=== PATIENT | female | born 1960 | race Caucasian/White ===

== ENCOUNTER 2018-07-01 10:22 | Inpatient (IN) | payer BC ==
[2018-07-01 11:01] LABS: Absolute Lymphocytes (CBC) 1.6 K/uL (0.7-4.9); Absolute Monocytes 0.6 K/uL (0.1-1.3); Absolute Neutrophil 7.7 K/uL (1.8-8.0); Basophils % 0.8 % (0-1.3); Eosinophils % 1.3 % (0-4.4); Hematocrit 39.2 % (36.0-45.0); Lymphocytes % 16.1 % (15.3-44.8); MPV 8.9 fL (7.6-11.3); Monocytes % 5.5 % (3.3-12.3); RBC Red Blood Cell Count 4.56 M/uL (3.86-4.86)
[2018-07-01 11:01] LABS: Urine Blood TRACE (NEG); Urine Glucose NEGATIVE (NEG); Urine Protein TRACE (NEG); Urine Specific Gravity 1.025 (1.005-1.030)
[2018-07-01] MEDS ORDERED: ASPIRIN 81 MG CHEWABLE TABLET ONE (11:09)
[2018-07-01] MEDS ORDERED: KETOROLAC 30 MG/ML INJ ONE (11:10)
[2018-07-01] MEDS ORDERED: NA CHLORIDE 0.9% 1,000 ML ONE (11:10)
[2018-07-01 11:28] LABS: ALT/SGPT 25 U/L (12-78); AST/SGOT 15 U/L (15-37); Albumin 3.7 g/dL (3.4-5.0); Alkaline Phosphatase 97 U/L (45-117); BUN Blood Urea Nitrogen 12 mg/dL (7-18); Bicarbonate 27 mmol/L (21-32); Bilirubin Direct 0.1 mg/dL (0-0.2); Bilirubin Total 0.5 mg/dL (0.2-1.0); Glucose Level 160 mg/dL (74-106); Magnesium 2.2 mg/dL (1.8-2.4); NT PRO-BNP 161 pg/mL (<125); Protein, Total 7.7 g/dL (6.4-8.2); Sodium Level 140 mmol/L (136-145); Troponin (Emerg Dept Use Only) < 0.02 ng/mL (0.0-0.045)
--- NOTE | 2018-07-01 11:52 | RAD REPORT ---
EXAM DESCRIPTION: RAD - Chest Single View - 07/01/2018 11:46 am CLINICAL HISTORY: CHEST PAIN Chest pain. COMPARISON: No comparisons FINDINGS: Portable technique limits examination quality. The lungs are grossly clear. The heart is normal in size. No displaced fractures. IMPRESSION: No acute intrathoracic process suspected.
[2018-07-01 12:20] LABS: Protime INR 1.08
--- NOTE | 2018-07-01 14:51 | ER ---
Nurse's Notes [facility] Name: Candy Hernandez Age: 57 yrs Sex: Female : 1960 Arrival Date: 07/01/2018 Time: 10:23 Bed 6 Private MD: Osvaldo Reese Diagnosis: Chest pain, unspecified;Abnormal electrocardiogram [ECG] [EKG] Presentation: 07/01 10:29 Presenting complaint: Patient states: yesterday i started having chest pain that i hj think its anxiety related but today when i woke up i had this sharp chest pain that comes and goes but the pain is constant, non radiating; denies SOB;. Transition of care: patient was not received from another setting of care. Onset of symptoms was July 01, 2018. Risk Assessment: Do you want to hurt yourself or someone else? Patient reports no desire to harm self or others. Initial Sepsis Screen: Does the patient meet any 2 criteria? No. Patient's initial sepsis screen is negative. Does the patient have a suspected source of infection? No. Patient's initial sepsis screen is negative. Care prior to arrival: None. 10:29 Method Of Arrival: Ambulatory 10:29 Acuity: SHIN 3 Triage Assessment: 10:32 General: Appears in no apparent distress. uncomfortable, Behavior is calm, cooperative, hj appropriate for age. Pain: Complains of pain in chest Pain does not radiate. Pain currently is 5 out of 10 on a pain scale. Cardiovascular: Reports chest pain, Capillary refill < 3 seconds Patient's skin is warm and dry. Historical: - Allergies: 10:31 No Known Allergies; hj - Home Meds: 10:31 None [Active]; hj - PMHx: 10:31 None; - PSHx: 10:31 ; hj - Immunization history:: Adult Immunizations not up to date. - Social history:: Smoking status: Patient/guardian denies using tobacco, Patient/guardian denies using alcohol. - Ebola Screening: : Patient negative for fever greater than or equal to 101.5 degrees Fahrenheit, and additional compatible Ebola Virus Disease symptoms Patient denies exposure to infectious person Patient denies travel to an Ebola-affected area in the 21 days before illness onset. Screenin:32 Abuse screen: Denies threats or abuse. Denies injuries from another. Nutritional hj screening: No deficits noted. Tuberculosis screening: No symptoms or risk factors identified. Fall Risk None identified. Assessment: 10:33 Pain: Pain began 1 day ago. hj 10:33 General: Appears in no apparent distress. uncomfortable, obese, Behavior is calm, hj cooperative, appropriate for age. Pain: Complains of pain in chest Pain does not radiate. Pain currently is 5 out of 10 on a pain scale. Quality of pain is described as sharp, Pain began 1 day ago. Neuro: Level of Consciousness is awake, alert, obeys commands, Oriented to person, place, time, situation, Appropriate for age. Cardiovascular: Reports chest pain, Capillary refill < 3 seconds Patient's skin is warm and dry. Respiratory: Airway is patent Respiratory effort is even, unlabored, Respiratory pattern is regular, symmetrical. GI: No signs and/or symptoms were reported involving the gastrointestinal system. : No signs and/or symptoms were reported regarding the genitourinary system. EENT: No signs and/or symptoms were reported regarding the EENT system. Derm: No signs and/or symptoms reported regarding the dermatologic system. Musculoskeletal: No signs and/or symptoms reported regarding the musculoskeletal system. 12:00 Reassessment: Patient and/or family updated on plan of care and expected duration. Pain hj level reassessed. Patient is alert, oriented x 3, equal unlabored respirations, skin warm/dry/pink. Patient states feeling better. Patient states symptoms have improved. 13:26 Reassessment: Patient and/or family updated on plan of care and expected duration. Pain hj level reassessed. Patient is alert, oriented x 3, equal unlabored respirations, skin warm/dry/pink. for repeat trop at 1400;. Vital Signs: 10:33 BP 163 / 68; Pulse 89; Resp 18; Temp 98.2(O); Pulse Ox 100% on R/A; Weight 124.74 kg; hj Height 5 ft. 3 in. (160.02 cm); Pain 5/10; 12:00 BP 148 / 70; Pulse 89; Resp 18; Pulse Ox 100% on R/A; hj 13:25 BP 127 / 66; Pulse 61; Resp 18; Pulse Ox 100% on R/A; hj 14:00 BP 117 / 48; Pulse 61; Resp 18; Pulse Ox 100% on R/A; hj 15:47 BP 122 / 53; Pulse 60; Resp 18; Pulse Ox 100% on R/A; hj 10:33 Body Mass Index 48.71 (124.74 kg, 160.02 cm) hj ED Course: 10:23 Patient arrived in ED. mr 10:23 Osvaldo Reese MD is Private Physician. mr 10:25 Christian Bishop, RN is Primary Nurse. hj 10:25 Alok Sunshine MD is Attending Physician. rn 10:25 Agustin Stafford PA is PHCP. cp 10:31 Triage completed. hj 10:32 Arm band placed on left wrist. hj 10:33 Patient has correct armband on for positive identification. Placed in gown. Bed in low hj position. Call light in reach. Side rails up X2. Adult w/ patient. monitoring coordinator on. Pulse ox on. NIBP on. 10:33 Patient maintains SpO2 saturation greater than 95% on room air. hj 10:36 EKG done, by ED staff, reviewed by Agustin RODRIGUEZ. jb1 10:41 Urine collected: clean catch specimen, cloudy, es colored. jb1 10:55 Initial lab(s) drawn, by tx, sent to lab. Inserted saline lock: 24 gauge in left hand, hj using aseptic technique. Blood collected. 11:03 Basic Metabolic Panel Sent. hj 11:03 CBC with Diff Sent. hj 11:03 LFT's Sent. hj 11:03 Magnesium Sent. hj 11:04 NT PRO-BNP Sent. hj 11:04 PT-INR Sent. hj 11:04 Troponin (emerg Dept Use Only) Sent. hj 11:46 XRAY Chest (1 view) In Process Unspecified. EDMS 13:50 Troponin I Sent. hj 14:04 Troponin I Sent. hj 14:43 Osvaldo Reese MD is Hospitalizing Provider. cp 15:46 Patient admitted, IV remains in place. intact, bleeding controlled, No redness/swelling hj at site. Pressure dressing applied. 15:46 No provider procedures requiring assistance completed. hj Administered Medications: 10:55 Drug: TORadol 30 mg Route: IVP; Site: left hand; hj 12:05 Follow up: Response: No adverse reaction; Pain is decreased hj 10:55 Drug: Aspirin Chewable Tablet 162 mg Route: PO; hj 12:05 Follow up: Response: No adverse reaction hj 10:55 Drug: NS 0.9% 500 ml Route: IV; Rate: bolus; Site: left hand; hj 12:06 Follow up: IV Status: Completed infusion hj 10:55 Drug: NS 0.9% 500 ml Route: IV; Rate: 125 ml/hr; Site: left hand; hj 12:06 Follow up: IV Status: Infusion continued Outcome: 14:50 Decision to Hospitalize by Provider. cp 15:46 Admitted to Med/surg accompanied by tech, family with patient, via wheelchair, room hj 213, with chart, Report called to Genevieve Cintron RN 15:46 Condition: stable 15:46 Instructed on the need for admit, Demonstrated understanding of instructions. 16:02 Patient left the ED. Signatures: Dispatcher [employer] EDYobany Cabrera Mary mr Alok Sunshine MD MD rn Joaquin, Henry, RN RN hj Page, Corey, JENNIFER PA cp Corrections: (The following items were deleted from the chart) 10:43 10:33 124.74 kg; Height 5 ft. 3 in.; BMI: 48.7; Pain 5/10; [facility]
--- NOTE | 2018-07-01 14:51 | EDPHYS ---
Physician Documentation [facility] Name: Candy Hernandez Age: 57 yrs Sex: Female : 1960 Arrival Date: 07/01/2018 Time: 10:23 Bed 6 Private MD: Osvaldo Reese ED Physician Alok Sunshine HPI: 07/01 10:39 This 57 yrs old Female presents to ER via Ambulatory with complaints of Chest cp Pain. 10:40 The patient or guardian reports chest pain that is located primarily in the anterior cp chest wall, substernal. 10:40 Onset: last night. cp 10:40 The pain does not radiate. cp 10:40 Associated signs and symptoms: Pertinent negatives: abdominal pain, cough, diaphoresis, cp dizziness, headache, lower extremity pain, lower extremity swelling, palpitations, recent travel, shortness of breath, syncope, vomiting. The chest pain is described as sharp. Duration: The patient or guardian reports multiple episodes, that wax and wane. Modifying factors: The symptoms are alleviated by nothing. the symptoms are aggravated by nothing. Historical: - Allergies: 10:31 No Known Allergies; hj - Home Meds: 10:31 None [Active]; hj - PMHx: 10:31 None; hj - PSHx: 10:31 ; hj - Immunization history:: Adult Immunizations not up to date. - Social history:: Smoking status: Patient/guardian denies using tobacco, Patient/guardian denies using alcohol. - Ebola Screening: : Patient negative for fever greater than or equal to 101.5 degrees Fahrenheit, and additional compatible Ebola Virus Disease symptoms Patient denies exposure to infectious person Patient denies travel to an Ebola-affected area in the 21 days before illness onset. ROS: 10:45 Constitutional: Negative for body aches, chills, fever, poor PO intake. cp 10:45 Eyes: Negative for injury, pain, redness, and discharge. cp 10:45 ENT: Negative for drainage from ear(s), ear pain, sore throat, difficulty swallowing, cp difficulty handling secretions. 10:45 Cardiovascular: Positive for chest pain, Negative for edema, palpitations. 10:45 Respiratory: Negative for cough, shortness of breath, wheezing. 10:45 Abdomen/GI: Negative for abdominal pain, nausea, vomiting, and diarrhea, constipation. 10:45 Back: Negative for pain at rest, pain with movement, radiated pain. 10:45 Skin: Negative for cellulitis, rash. 10:45 Neuro: Negative for altered mental status, headache, weakness. 10:45 All other systems are negative. Exam: 10:40 ECG was reviewed by the Attending Physician. cp 10:50 Constitutional: The patient appears in no acute distress, alert, awake, cp non-diaphoretic, non-toxic, well developed, well nourished, obese. 10:50 Head/Face: Normocephalic, atraumatic. Eyes: Pupils equal round and reactive to light, cp extra-ocular motions intact. Lids and lashes normal. Conjunctiva and sclera are non-icteric and not injected. Cornea within normal limits. Periorbital areas with no swelling, redness, or edema. ENT: Nares patent. No nasal discharge, no septal abnormalities noted. Tympanic membranes are normal and external auditory canals are clear. Oropharynx with no redness, swelling, or masses, exudates, or evidence of obstruction, uvula midline. Mucous membranes moist. Neck: Trachea midline, no thyromegaly or masses palpated, and no cervical lymphadenopathy. Supple, full range of motion without nuchal rigidity, or vertebral point tenderness. No Meningismus. Chest/axilla: Normal chest wall appearance and motion. Nontender with no deformity. No lesions are appreciated. Cardiovascular: Regular rate and rhythm with a normal S1 and S2. No gallops, murmurs, or rubs. Normal PMI, no JVD. No pulse deficits. Respiratory: Lungs have equal breath sounds bilaterally, clear to auscultation and percussion. No rales, rhonchi or wheezes noted. No increased work of breathing, no retractions or nasal flaring. 10:50 Abdomen/GI: Inspection: obese Bowel sounds: active, all quadrants, Palpation: abdomen is soft and non-tender, in all quadrants, rebound tenderness, is not appreciated, involuntary guarding, is not appreciated. 10:50 Back: pain, is absent, ROM is normal. 10:50 Skin: cellulitis, is not appreciated, no rash present. 10:50 Neuro: Orientation: to person, place \T\ time. Mentation: is normal, Cerebellar function: is grossly normal, Motor: moves all fours, strength is normal, Sensation: is normal. 14:25 ECG was reviewed by the Attending Physician. Vital Signs: 10:33 BP 163 / 68; Pulse 89; Resp 18; Temp 98.2(O); Pulse Ox 100% on R/A; Weight 124.74 kg; hj Height 5 ft. 3 in. (160.02 cm); Pain 5/10; 12:00 BP 148 / 70; Pulse 89; Resp 18; Pulse Ox 100% on R/A; hj 13:25 BP 127 / 66; Pulse 61; Resp 18; Pulse Ox 100% on R/A; hj 14:00 BP 117 / 48; Pulse 61; Resp 18; Pulse Ox 100% on R/A; hj 15:47 BP 122 / 53; Pulse 60; Resp 18; Pulse Ox 100% on R/A; hj 10:33 Body Mass Index 48.71 (124.74 kg, 160.02 cm) hj MDM: 10:25 Patient medically screened. rn 11:00 Differential diagnosis: abnormal EKG, acute myocardial infarction, pericarditis, cp pneumonia, pneumothorax, pulmonary embolus, stable angina, thoracic aortic disection, unstable angina. 14:31 The patient was given aspirin in the Emergency Department. 14:35 Physician consultation: Saira Singh MD was called at 14:30, was contacted at 14:30, regarding admission, to the telemetry unit. patient's condition, discussed changes noted on repeat EKG of inverted t-waves in leads II, III, aVF, V3, V4, V5, V6. 14:35 Data reviewed: vital signs, nurses notes, lab test result(s), EKG, radiologic studies, cp plain films. 14:35 Test interpretation: by ED physician or midlevel provider: ECG, plain radiologic cp studies. Counseling: I had a detailed discussion with the patient and/or guardian regarding: the historical points, exam findings, and any diagnostic results supporting the discharge/admit diagnosis, lab results, radiology results, the need for further work-up and treatment in the hospital. Response to treatment: the patient's symptoms have markedly improved after treatment. 07/01 10:30 Order name: Basic Metabolic Panel; Complete Time: 11:55 cp 07/01 11:55 Interpretation: Normal except: GLUC 160; GFR 74. cp 07/01 10:30 Order name: CBC with Diff; Complete Time: 11:11 cp 07/01 11:11 Interpretation: Normal except: ZIA% 76.3. cp 07/01 10:30 Order name: LFT's; Complete Time: 11:55 cp 07/01 10:30 Order name: Magnesium; Complete Time: 11:55 cp 07/01 10:30 Order name: NT PRO-BNP; Complete Time: 11:55 cp 07/01 10:30 Order name: PT-INR; Complete Time: 14:24 cp 07/01 10:30 Order name: Troponin (emerg Dept Use Only); Complete Time: 11:55 cp 07/01 11:55 Interpretation: Within normal limits: TROPED < 0.02. 07/01 10:30 Order name: XRAY Chest (1 view); Complete Time: 11:55 07/01 10:42 Order name: Urine Dipstick--Ancillary (enter results) 07/01 13:42 Order name: Troponin I; Complete Time: 14:24 07/01 14:24 Interpretation: TROP < 0.02; Reviewed. 07/01 14:41 Order name: Troponin I [facility] 07/01 14:41 Order name: Troponin I [facility] 07/01 14:41 Order name: Troponin I [facility] 07/01 14:41 Order name: Troponin I [facility] 07/01 10:30 Order name: EKG; Complete Time: 10:30 07/01 10:30 Order name: Cardiac monitoring; Complete Time: 10:34 cp 07/01 10:30 Order name: EKG - Nurse/Tech; Complete Time: 10:34 07/01 10:30 Order name: IV Saline Lock; Complete Time: 10:57 07/01 10:30 Order name: Labs collected and sent; Complete Time: 10:57 07/01 10:30 Order name: O2 Per Protocol; Complete Time: 10:34 cp 07/01 10:30 Order name: O2 Sat Monitoring; Complete Time: 10:34 07/01 13:42 Order name: Repeat Cardiac Enzymes at: 1400; Complete Time: 13:44 hj 07/01 14:15 Order name: EKG; Complete Time: 14:16 cp 07/01 14:40 Order name: CONS Physician Consult [facility] 07/01 14:40 Order name: Heart Healthy [facility] 07/01 14:40 Order name: Echo with Doppler [facility] 07/01 14:15 Order name: EKG - Nurse/Tech; Complete Time: 14:23 cp EC:40 Rate is 82 beats/min. Rhythm is regular. AK interval is normal. QRS interval is normal. cp QT interval is normal. Interpreted by me. Reviewed by me. 14:25 Rate is 65 beats/min. Rhythm is regular. AK interval is normal. QRS interval is normal. cp QT interval is normal. T waves are Inverted in leads I, II, aVF, V3, V4, V5, V6. Interpreted by me. Reviewed by me. Administered Medications: 10: Drug: TORadol 30 mg Route: IVP; Site: left hand; hj 12:05 Follow up: Response: No adverse reaction; Pain is decreased hj : Drug: Aspirin Chewable Tablet 162 mg Route: PO; hj 12:05 Follow up: Response: No adverse reaction hj Drug: NS 0.9% 500 ml Route: IV; Rate: bolus; Site: left hand; hj 12:06 Follow up: IV Status: Completed infusion hj Drug: NS 0.9% 500 ml Route: IV; Rate: 125 ml/hr; Site: left hand; hj 12:06 Follow up: IV Status: Infusion continued Disposition: 17:13 Co-signature as Attending Physician, Alok Sunshine MD. rn Disposition: 07/01/18 14:50 Hospitalization ordered by Osvaldo Reese for Observation. Preliminary diagnosis are Chest pain, unspecified, Abnormal electrocardiogram [ECG] [EKG]. - Bed requested for Telemetry/MedSurg (observation). - Status is Observation. hj - Condition is Stable. - Problem is new. - Symptoms have improved. UTI on Admission? No Signatures: Dispatcher [employer] [facility] Alissa Laguerre RN RN mw Nieto, Roman, MD MD rn Joaquin, Henry, RN RN hj Page, Corey, PA PA cp Corrections: (The following items were deleted from the chart) 15:28 14:50 Hospitalization Ordered by Osvaldo Reese MD for Observation. Preliminary diagnosis is Chest pain, unspecified; Abnormal electrocardiogram [ECG] [EKG]. Bed requested for Telemetry/MedSurg (observation). Status is Observation. Condition is Stable. Problem is new. Symptoms have improved. UTI on Admission? No. cp 16:02 15:28 07/01/2018 14:50 Hospitalization Ordered by Osvaldo Reese MD for Observation. hj Preliminary diagnosis is Chest pain, unspecified; Abnormal electrocardiogram [ECG] [EKG]. Bed requested for Telemetry/MedSurg (observation). Status is Observation. Condition is Stable. Problem is new. Symptoms have improved. UTI on Admission? No. mw
[2018-07-01] MEDS ORDERED: ONDANSETRON 4 MG/2 ML VIAL IV PRN (16:00)
[2018-07-01 16:28] VITALS: BMI 47.0
--- NOTE | 2018-07-01 17:58 | P.HP ---
Certification for Inpatient Patient admitted to: Observation With expected LOS: <2 Midnights Patient will require the following post-hospital care: None Practitioner: I am a practitioner with admitting privileges, knowledge of patient current condition, hospital course, and medical plan of care. Services: Services provided to patient in accordance with Admission requirements found in Title 42 Section 412.3 of the Code of Federal Regulations Patient History Date of Service: 07/01/18 Primary Care Provider: Mary Ann Reason for admission: Chest he History of Present Illness: This is a 57 years old female with no significant past medical history who presented to the ED complaining of having some chest pain. Patient stated that her pain was sharp shooting in nature and thus was worried and thus decided to come to the ER. Chest pain started this morning at around 7:30 a.m. and did resolve on its own once patient came to the ER. Patient stated that pain was nonradiating and was 10/10 when it started. Patient denies having any nausea vomiting shortness of breath, abdominal pain or any other associated symptoms at this time. In the ER patient had lab work imaging and EKG done. EKG was nonspecific T- wave changes. Troponin x1 was negative. Patient was admitted for ACS rule out. Allergies No Known Allergies Allergy (Verified 07/01/18 14:46) Home medications list reviewed: Yes Home Medications: NK [No Home Meds] 07/01/18 - Past Medical/Surgical History Has patient received pneumonia vaccine in the past: No Diabetic: No - Social History Smoking Status: Never smoker Alcohol use: No CD- Drugs: No Caffeine use: Yes Place of Residence: Home Review of Systems 10-point ROS is otherwise unremarkable Physical Examination - Vital Signs Temperature: 98.2 F Blood Pressure: 122/53 Pulse: 60 Respirations: 18 - Physical Exam General: Alert, In no apparent distress, Obese HEENT: Atraumatic, PERRLA, Mucous membr. moist/pink, EOMI, Sclerae nonicteric Neck: Supple, 2+ carotid pulse no bruit, No LAD, Without JVD or thyroid abnormality Respiratory: Clear to auscultation bilaterally, Normal air movement Cardiovascular: Regular rate/rhythm, Normal S1 S2 Gastrointestinal: Normal bowel sounds, No tenderness Musculoskeletal: No tenderness Integumentary: No rashes Neurological: Normal gait, Normal speech, Normal strength at 5/5 x4 extr, Normal tone, Normal affect Lymphatics: No axilla or inguinal lymphadenopathy - Studies Laboratory Data (last 24 hrs) 07/01/18 13:50: Troponin I < 0.02 07/01/18 11:10: PT 12.7 H, INR 1.08 07/01/18 10:55: WBC 10.1, Hgb 12.8, Hct 39.2, Plt Count 255 07/01/18 10:55: Sodium 140, Potassium 4.0, BUN 12, Creatinine 0.80, Glucose 160 H, Magnesium 2.2, Total Bilirubin 0.5, AST 15, ALT 25, Alkaline Phosphatase 97 Assessment and Plan - Problems (Diagnosis) (1) Chest pain Current Visit: Yes Status: Acute Plan: Atypical chest pain -troponin x1 negative. EKG with non specific T-wave changes -cardiology consulted. Awaiting recommendations -if needed will get echocardiogram done here in the hospital and then outpatient follow up for a stress test -will replete troponin x2 -patient started on aspirin, beta-cande, statin at this time Qualifiers: Chest pain type: other chest pain Qualified Code(s): R07.89 - Other chest pain; R07.8 - Other chest pain (2) Morbid obesity Current Visit: Yes Status: Chronic - Plan Patient admitted to medical-surgical floor for ACS rule out and cardiology consult. Discharge Plan: Home Plan to discharge in: 48 Hours - Advance Directives Does patient have a Living Will: No Does patient have a Durable POA for Healthcare: No - Code Status/Comfort Care Code Status Assessed: Yes Critical Care: No
[2018-07-01] MEDS: ATORVASTATIN 40 MG TAB PO SCH (20:05)
[2018-07-02] MEDS ORDERED: cloNIDine HCl 0.1 MG TAB PO ONE (00:26)
[2018-07-02] MEDS: LOSARTAN POTASSIUM 50 MG TABLET PO SCH ×3 (00:45→21:36)
[2018-07-02] MEDS: METOPROLOL XL 25 MG TAB PO SCH (05:34)
[2018-07-02 05:41] LABS: Albumin 3.4 g/dL (3.4-5.0); Bilirubin Total 0.7 mg/dL (0.2-1.0); Potassium 4.6 mmol/L (3.5-5.1); Protein, Total 7.2 g/dL (6.4-8.2)
[2018-07-02 05:44] LABS: Absolute Lymphocytes (CBC) 1.6 K/uL (0.7-4.9); Absolute Monocytes 0.6 K/uL (0.1-1.3); Absolute Neutrophil 8.9 K/uL (1.8-8.0); Basophils % 0.8 % (0-1.3); Eosinophils % 1.3 % (0-4.4); Hematocrit 36.8 % (36.0-45.0); Lymphocytes % 14.3 % (15.3-44.8); MPV 9.3 fL (7.6-11.3); Monocytes % 5.1 % (3.3-12.3); RBC Red Blood Cell Count 4.25 M/uL (3.86-4.86)
[2018-07-02] MEDS: ASPIRIN EC 81 MG TAB PO SCH (09:03)
--- NOTE | 2018-07-02 11:12 | P.PN ---
Subjective Date of Service: 07/02/18 Primary Care Provider: Mary Ann Chief Complaint: Chest he Patient seen and examined at bedside with RN. Chart reviewed. Case discussed with family member at bedside. Patient this morning complains of having chest pain upon breathing. Pain is radiating up her neck bilaterally. Patient is invisible distressed due to the fact that she has to stay here to the hospital 1 more day. However patient's symptoms are getting worse. Denies having any shortness of breath nausea vomiting or any abdominal pain at this time. Currently awaiting cardiology consultation Review of Systems 10-point ROS is otherwise unremarkable Physical Examination - Vital Signs Temperature: 98.2 F Blood Pressure: 144/62 Pulse: 67 Respirations: 17 Pulse Ox (%): 98 - Physical Exam General: Alert, In no apparent distress HEENT: Atraumatic, PERRLA, EOMI Neck: Supple, JVD not distended Respiratory: Clear to auscultation bilaterally, Normal air movement Cardiovascular: Regular rate/rhythm, Normal S1 S2 Gastrointestinal: Normal bowel sounds, No tenderness Musculoskeletal: No tenderness Integumentary: No rashes Neurological: Normal speech, Normal tone, Normal affect Lymphatics: No axilla or inguinal lymphadenopathy - Studies Laboratory Data (last 24 hrs) 07/01/18 13:50: Troponin I < 0.02 07/01/18 11:10: PT 12.7 H, INR 1.08 07/01/18 10:55: Sodium 140, Potassium 4.0, BUN 12, Creatinine 0.80, Glucose 160 H, Magnesium 2.2, Total Bilirubin 0.5, AST 15, ALT 25, Alkaline Phosphatase 97 Medications List Reviewed: Yes Assessment And Plan - Current Problems (Diagnosis) (1) Chest pain Current Visit: Yes Status: Acute Plan: Atypical chest pain -troponin [id number]. EKG with non specific T-wave changes -cardiology consulted. Awaiting recommendations -echocardiogram pending at this time. -patient started on aspirin, beta-cande, statin at this time Qualifiers: Chest pain type: chest pain on breathing Qualified Code(s): R07.1 - Chest pain on breathing; R07.81 - Pleurodynia (2) Morbid obesity Current Visit: Yes Status: Chronic - Plan Pending clinical improvement at this time. Will follow up with cardiology consultation and echocardiogram done in the hospital. Discharge Plan: Home Plan to discharge in: 48 Hours - Code Status/Comfort Care Code Status Assessed: Yes Critical Care: No
--- NOTE | 2018-07-02 16:18 | CON ---
History Of Present Illness: Mrs. Hernandez came to the hospital because of chest pain. According to the f amily member, she has been complaining of it for sometime. To me, she tells me had it all started ye sterday, lasted a few seconds and has gone, sharp fleeting pains. Family members look on seeming to disagree with her story or wonder why she is stating that this way to me. She is a patient who takes aspirin and tries to avoid the medical profession. I do not think she has had a visit with a physic jimmy in some years. She is 1, para 2 with C-sections. She does not know any allergies. She uses no tobacco. Rare alcohol. No illegal drugs. Physical Examination: Vital Signs: She is 5 feet 3 inches, 265 pounds. HEENT: Unremarkable. Carotids no bruit. Heart: Systolic ejection type murmur grade 2-3/6 consistent with aortic stenosis. No diastolic murm ur. Abdomen: Soft. Extremities: No cyanosis, clubbing, or edema. Distal pulses normal. Laboratory Data: Her cardiac enzymes are normal. BUN and creatinine are normal. All of her blood s ugars are elevated, consistent with diabetes. Impression: The patient may well have coronary artery disease or aortic stenosis causing her chest p ain. I have recommended she stay in the hospital until she does an echo and pharmacologic stress paris HOUGH/SOHA Voice ID: [id number] Report ID: [id number]
[2018-07-02] MEDS ORDERED: MORPHINE 2 MG/ML SYR IV ONE (21:15)
[2018-07-02] MEDS: ATORVASTATIN 40 MG TAB PO SCH (21:36)
[2018-07-03] MEDS: METOPROLOL XL 25 MG TAB PO SCH ×2 (06:00→17:15)
[2018-07-03 06:29] LABS: Absolute Lymphocytes (CBC) 2.1 K/uL (0.7-4.9); Absolute Monocytes 0.9 K/uL (0.1-1.3); Absolute Neutrophil 7.4 K/uL (1.8-8.0); Basophils % 0.9 % (0-1.3); Eosinophils % 1.1 % (0-4.4); Lymphocytes % 19.7 % (15.3-44.8); MPV 9.1 fL (7.6-11.3); Monocytes % 8.9 % (3.3-12.3); RBC Red Blood Cell Count 4.01 M/uL (3.86-4.86)
[2018-07-03 06:51] LABS: Bilirubin Total 0.9 mg/dL (0.2-1.0); Potassium 4.5 mmol/L (3.5-5.1); Protein, Total 6.7 g/dL (6.4-8.2)
[2018-07-03] MEDS ORDERED: REGADENOSON 0.4 MG/5 ML SYR IV ONE (08:11)
[2018-07-03] MEDS: LOSARTAN POTASSIUM 50 MG TABLET PO SCH ×2 (09:00→22:15)
--- NOTE | 2018-07-03 14:09 | ECHO ---
HEIGHT: 5 ft 3 in WEIGHT: 265 lb 8 oz DATE OF STUDY: 07/03/[address]: Saira Singh MD 2-DIMENSIONAL: YES M.MODE: YES DOPPLER: YES COLOR FLOW: YES TDS: YES PORTABLE: NO DEFINITY: NO BUBBLE STUDY: NO DIAGNOSIS: CHEST PAIN CARDIAC HISTORY: CATHERIZATION: NO SURGERY: NO PROSTHETIC VALVE: NO PACEMAKER: NO MEASUREMENTS (cm) DIASTOLIC (NORMALS) SYSTOLIC (NORMALS) IVSd 1.0 (0.6-1.2) LA Diam 3.7 (1.9-4.0) LVEF 51% LVIDd 5.4 (3.5-5.7) LVIDs 4.0 (2.0-3.5) %FS 26% LVPWd 1.2 (0.6-1.2) Ao Diam 2.6 (2.0-3.7) 2 DIMENSIONAL ASSESSMENT: RIGHT ATRIUM: NORMAL LEFT ATRIUM: NORMAL RIGHT VENTRICLE: NORMAL LEFT VENTRICLE: NORMAL TRICUSPID VALVE: NORMAL MITRAL VALVE: NORMAL PULMONIC VALVE: NORMAL AORTIC VALVE: STENOSIS PERICARDIAL EFFUSION: NONE AORTIC ROOT: NORMAL LEFT VENTRICULAR WALL MOTION: NORMAL DOPPLER/COLOR FLOW: MILD TO MODERATE AORTIC STENOSIS. PEAK/MEAN GRADIENT 32/21. ESTIMATED AORTIC VALVE AREA 1.5 CENTIMETERS SQUARED. NO AORTIC REGURGITATION. MILD MITRAL REGURGITATION. COMMENTS: NORMAL LEFT VENTRICULAR EJECTION FRACTION. MILD TO MODERATE AORTIC STENOSIS. NO AORTIC REGURGITATION. MILD MITRAL REGURGITATION. TECHNOLOGIST: Cristo SAGASTUME
--- NOTE | 2018-07-03 16:39 | RAD REPORT ---
EXAM DESCRIPTION: NM - Rest Stress Cardiac Imaging - 07/03/2018 4:32 pm CLINICAL HISTORY: CP Chest pain. COMPARISON: No comparisons TECHNIQUE: The patient was administered approximately 10mCi of Tc 99m Sestamibi prior to resting SPE CT imaging of the heart. The patient was then administered approximately 30 mCi of Tc 99m Sestamibi f ollowing exercise or pharmacologic stress. Multiplanar SPECT images were reviewed. FINDINGS: Moderate sized area of moderate stress-induced ischemia is seen involving the anterolatera l wall. No fixed defect is seen to suggest hibernating myocardium or scarred myocardium. The end diastolic volume is 96 ml, the end systolic volume is 31 ml, and the ejection fraction is 67 %. IMPRESSION: Moderate stress-induced ischemia involving the anterolateral wall is identified.
[2018-07-03] MEDS: ASPIRIN EC 81 MG TAB PO SCH (17:14)
--- NOTE | 2018-07-03 21:31 | PN ---
Mrs. Hernandez has an abnormal Cardiolite stress test. I have recommended doing a cardiac cath. The patie nt is quite emotional at the news, not ready to make up the decision. She agreed to have me set it u p for tomorrow, but she is going to contemplate options and discuss it with her , but for now we are going to set up a cardiac cath, possible stent, we can try radial and we will do that tomorrow . The patient seems to understand the procedure, potential benefits, indications, risks, and agrees to proceed. JESSICA Voice ID: [id number] Report ID: [id number]
[2018-07-03] MEDS: ATORVASTATIN 40 MG TAB PO SCH (22:14)
[2018-07-04] MEDS: METOPROLOL XL 25 MG TAB PO SCH (05:00)
[2018-07-04 05:53] LABS: Absolute Lymphocytes (CBC) 1.8 K/uL (0.7-4.9); Absolute Monocytes 0.6 K/uL (0.1-1.3); Absolute Neutrophil 7.7 K/uL (1.8-8.0); Basophils % 0.8 % (0-1.3); Eosinophils % 1.8 % (0-4.4); Lymphocytes % 17.1 % (15.3-44.8); MPV 9.3 fL (7.6-11.3); Monocytes % 6.3 % (3.3-12.3); RBC Red Blood Cell Count 4.39 M/uL (3.86-4.86)
[2018-07-04 06:27] LABS: Albumin 3.4 g/dL (3.4-5.0); Bilirubin Total 0.6 mg/dL (0.2-1.0); Phosphorus 3.7 mg/dL (2.5-4.9); Potassium 4.6 mmol/L (3.5-5.1); Protein, Total 7.4 g/dL (6.4-8.2)
--- NOTE | 2018-07-04 08:13 | TREADPHA ---
DX: CHEST PAIN Date of Study: 07/03/2018 Ht: 5 3 Wt: 265 lb 8 oz Consulting Physician: SAMANTHA MEDICATIONS: ASPIRIN, LIPITOR, COZAAR, TOPROL XL, ZOFRAN HISTORY: 57 YEAR OLD FEMALE HERE FOR CHEST PAIN. DENIES ANY MEDICAL HISTORY. PHYSICIAL EXAMINATION: RESTING B.P.: 153/69 RESTING H.R.: 65 RESTING EKG: CANNOT RULE OUT ANTERIOR MYOCARDIAL INFARCTION. SINUS RHYTHM. PROTOCOL: LEXISCAN EXERCISE TIME: 3:30 B.P. AT PEAK STRESS: 167/86 IMPRESSION: LEXISCAN STRESS TEST PERFORMED. CARDILITE INJECTED PER PROTOCOL. NO ARRHYTHMIAS NOTED. DENIES ANY PAIN. SEE NUCLEAR MEDICINE REPORT. NON DIAGNOSTIC EKG WITH LEXISCAN.
[2018-07-04] MEDS: LOSARTAN POTASSIUM 50 MG TABLET PO SCH (08:17)
[2018-07-04] MEDS: ASPIRIN EC 81 MG TAB PO SCH (08:17)
[2018-07-04] MEDS ORDERED: HEPA 1000U/500MLS 2,000 UNIT/1,000 ML BAG IV ONE (09:11)
[2018-07-04] MEDS ORDERED: ATROPINE SULF 1 MG/10 ML SYR IV ONE (09:53)
[2018-07-04] MEDS ORDERED: NA CHLORIDE 0.9% 500 ML ONE (09:53)
[2018-07-04] MEDS ORDERED: NICARDIPINE HCL 25 MG/10 ML IV ONE (09:59)
[2018-07-04] MEDS ORDERED: FENTANYL CITR 100 MCG/2 ML ONE (09:59)
[2018-07-04] MEDS ORDERED: MIDAZOLAM HCL 2 MG/2 ML INJ ONE ×2 (09:59→10:10)
[2018-07-04] MEDS ORDERED: HEPARIN 5000 UNIT/ML 1 ML VIAL ONE (09:59)
[2018-07-04] MEDS ORDERED: NA CHLORIDE 0.9% 0 ML IV ONE (09:59)
[2018-07-04 12:17] VITALS: BP 127/58; TEMP 97; O2SAT 97
--- NOTE | 2018-07-04 17:00 | PN ---
Date of Progress Note: 07/03/2018 The patient is asymptomatic today, however, she has a questionable stress test and being scheduled fo r a catheterization in the morning. Vital signs are stable. Depending on the results of the cathete rization, disposition will be made. HR/MODL Voice ID: [id number] Report ID: [id number]
[2018-07-04] MEDS ORDERED: ATORVASTATIN 80 MG TAB PO SCH (21:00)
--- NOTE | 2018-07-04 21:38 | OP ---
Surgeon: Donny Palacios MD Procedures: Ms. Hernandez had a left heart catheterization, coronary left ventricular angiography. Procedure Findings: The patient has no critical coronary stenosis, rather she has diffuse coronary p laquing. There is lumen irregularity everywhere. The most concerning area where it is building up i s in the distal left main and proximal LAD, but this amounts to 10-20% stenosis. There is a 50% sten osis in the very distal portion of the circumflex beyond all the obtuse marginals. The right coronar y has no significant CAD, although the very ostium of it may be slightly narrowed, maybe a 10% stenos is. Her left ventricular ejection fraction is normal. Left ventricular end-diastolic pressure is el evated at 22 mmHg consistent with diastolic dysfunction, and our recommendation is for aggressive ris k factor modification including weight loss and using Lipitor 80 mg a day. Procedure In Detail: The patient had an abnormal Cardiolite stress test showing anterior ischemia. She was brought to the cardiac specialist employee labor relations in a fasting state, sedated with Versed and fentanyl. Prepar ed and draped in usual sterile fashion. A Barbeau test and Silver test were abnormal showing minimal contribution of blood flow to the hand from the ulnar artery, so we abandoned the initial idea of usi ng the radial artery and went to the right femoral artery. The tissues around the artery were anesth etized with 1% lidocaine. It was entered with an 18-gauge needle, cannulated with a J-wire 4-Rwandan sheath. We used a 4-Rwandan JR4, 4-Rwandan 3DRC, 4-Rwandan angled pigtail. Catheters were withdrawn ov er a J-wire. An angiogram was done at the end of the procedure of the right femoral artery through t he sheath. Adequate anatomy was seen, and we closed the arteriotomy with Angio-Seal. No complicatio ns from the procedure. Estimated Blood Loss: 10 cc. Marbleizer: Roel LOPEZ Voice ID: [id number] Report ID: [id number]
--- NOTE | 2018-07-06 17:11 | PN ---
Date of Progress Note: 07/04/2018 The patient underwent catheterization, showed some modest changes, not requiring stent. In view of t his she will be discharged. Discussion at length was held in regard to her weight, blood sugars, and she was placed on statin by her electrotype caster, to be followed by me in 1 week. At that time further evaluation of the pain perhaps coming from some diaphragmatic problem with her esophagus and/or gallb ladder will also be done. Follow up with Cardiology in a few weeks. HR/SOHA Voice ID: [id number] Report ID: [id number]
== END 2018-07-04 15:50 | disposition home or self-care (01) | DRG 287 ==
LOC: ER 10:22 → ERHOLD 14:39 → 2ND 15:47 → OBSVTOIN 07-03 13:39
PROVIDERS: ADMIT Family Medicine; ATTEND Family Medicine
PROC: 4A023N7 Measurement of Cardiac Sampling and Pressure, Left Heart, Percutaneous Approach (ICD-10-PCS; principal; 2018-07-04)
PROC: B201YZZ Plain Radiography of Multiple Coronary Arteries using Other Contrast (ICD-10-PCS; 2018-07-04)
PROC: B205YZZ Plain Radiography of Left Heart using Other Contrast (ICD-10-PCS; 2018-07-04)
DX: R07.89 Other chest pain (principal); Z68.42 Body mass index [BMI] 45.0-49.9, adult; E66.01 Morbid (severe) obesity due to excess calories; R07.81 Pleurodynia; I25.10 Atherosclerotic heart disease of native coronary artery without angina pectoris
CPT/HCPCS: 36415; 71045; 78452; 80048; 80053; 80076; 81003; 83735; 83880; 84100; 84484; 85025; 85610; 93017; 93306; 93458; 96361; 96374; 99285; A9500; C1760; C1893; G0378; J0583; J1644; J2250; J2270; J2785; J3010; J7030

== ENCOUNTER 2020-12-29 06:31 | Day surgery (SDC) | payer BC ==
--- NOTE | 2020-12-25 15:20 | RAD REPORT ---
EXAM DESCRIPTION: RAD - Chest Pa And Lat (2 Views) - 12/25/2020 3:12 pm CLINICAL HISTORY: Pre Op Heart Cath Chest pain. COMPARISON: <Comparisons> FINDINGS: Mild interstitial pulmonary edema seen. The heart is moderately enlarged. No displaced fra ctures. IMPRESSION: Mild CHF.
[2020-12-25 15:36] LABS: Absolute Lymphocytes (CBC) 1.7 K/uL (0.7-4.9); Basophils % 0.9 % (0-1.3); Hematocrit 34.9 % (36.0-45.0); Lymphocytes % 17.2 % (15.3-44.8); MPV 9.7 fL (7.6-11.3); RBC Red Blood Cell Count 4.12 M/uL (3.86-4.86)
[2020-12-25 15:41] LABS: Protime INR 1.11
[2020-12-25 15:48] LABS: BUN Blood Urea Nitrogen 15 mg/dL (7-18); Bicarbonate 28 mmol/L (21-32); Glucose Level 100 mg/dL (74-106); Potassium 3.9 mmol/L (3.5-5.1); Sodium Level 142 mmol/L (136-145)
[2020-12-29] MEDS ORDERED: NA CHLORIDE 0.9% 500 ML ONE (07:13)
[2020-12-29] MEDS ORDERED: LIDOCAINE 1% 20 ML MDV ONE (07:51)
[2020-12-29] MEDS ORDERED: HEPA 1000U/500MLS 1,000 UNIT/500 ML BAG IV ONE (07:51)
[2020-12-29] MEDS ORDERED: MIDAZOLAM HCL 2 MG/2 ML INJ ONE ×2 (07:51→07:57)
[2020-12-29] MEDS ORDERED: NA CHLORIDE 0.9% 100 ML IV ONE (07:57)
[2020-12-29] MEDS ORDERED: ATROPINE SULF 1 MG/10 ML SYR IV ONE (07:57)
[2020-12-29] MEDS ORDERED: FENTANYL CITR 100 MCG/2 ML ONE (07:57)
[2020-12-29] MEDS ORDERED: NA CHLORIDE 0.9% 0 ML ONE (07:58)
--- NOTE | 2020-12-29 08:45 | OP ---
Date of Procedure: 12/29/2020 Surgeon: Colin Osborne MD Business Case Analyst: Torri Johnson. The patient will remain in the hospital for 2 hours after bedrest and I will make arrangements for he r to see a cardiovascular surgeon in [place]. Procedures: Left heart catheterization, right heart catheterization, oxygen saturation recording, an d cardiac output recording. Indication: Severe aortic stenosis. Procedure In Detail: The patient was brought to the botany laboratory assistant today on 12/29/2020 as an outpatient. She was prepped and draped in the routine sterile fashion. She was given Versed and fentanyl for sed ation. A 7-Cuban sheath introduced in the right common femoral vein. A 6-Cuban sheath introduced in the right common femoral artery successfully. Angiography there was normal. Angio-Seal was used to close the case. Hand pressure was held to establish hemostasis in the vein area on the right. Pinstant Karma catheter left and right were used to cannulate the left main and right main respectively. She had diffuse plaquing in the RCA and the LAD, very tortuous vessels. The left main was normal. There was a 30% ostial stenosis of the LAD and the circumflex. There was about a 40% in the mid circumfle x stenosis, very tortuous obtuse marginal. No significant focal stenosis. Following the Cheng cat heter and the left heart catheterization. I attempted to cross the wire across the aortic valve with a wire, but was unsuccessful. There appeared to be severe calcification around the aortic valve. A [place]-Sam catheter then was introduced in the right common femoral vein. Balloon was inflated right after crossing the sheath in the [place]. The catheter was advanced in the right atrium, right ventric le, pulmonary artery wedge. Pressures were done across the past. The cardiac output was measured to be about 6.4 L a minute. Oxygen saturations were pending. The pressures were very elevated in the right atrium, right ventricle, pulmonary artery and wedge. The patient obviously had severe pulmonar y hypertension with pulmonary artery pressures in the 70s, which was 38. There were no complications . Blood Loss: 5 mL. Postoperative Diagnoses: Severe aortic stenosis, moderate coronary artery disease, severe pulmonary hypertension. Plan: Possible TAVR versus an open aortic valve replacement. NB/MODL Voice ID: [id number] Report ID: [id number]
[2020-12-29 10:23] VITALS: TEMP 96.9
[2020-12-29 10:25] VITALS: BP 145/56; O2SAT 95
== END 2020-12-29 10:18 | disposition home or self-care (01) ==
LOC: OR 06:31 → CCL 10:18
DX: I35.2 Nonrheumatic aortic (valve) stenosis with insufficiency (principal); I25.10 Atherosclerotic heart disease of native coronary artery without angina pectoris; I27.20 Pulmonary hypertension, unspecified; I77.1 Stricture of artery; R00.2 Palpitations; E78.01 Familial hypercholesterolemia; E66.01 Morbid (severe) obesity due to excess calories; Z68.41 Body mass index [BMI] 40.0-44.9, adult; Z86.16 Personal history of COVID-19; Z20.822 Contact with and (suspected) exposure to COVID-19
CPT/HCPCS: 93005; 85025; 80048; 36415; 85610; 85730; 71046; 93456; U0003; C1893; C1760; J2250; J3010; J7040; J1644; J0583